=== PATIENT | male | born 1955 | race Caucasian/White ===

== ENCOUNTER 2024-01-26 22:21 | Emergency (ER) | payer BC, SELFPAY ==
[2024-01-26 22:30] VITALS: BP 136/84
--- NOTE | 2024-01-27 00:57 | ED.GENMED ---
History of Present Illness
General
Chief Complaint: Back Pain
Time Seen by Provider: 01/27/24 00:54
Travel History
Have you had any contact with someone who has COVID-19?: No
Do you have any symptoms of coronavirus? Fever > 100 degrees, chills, cough, shortness of breath, sore throat, loss of taste or smell, muscle aches, or headache?: No
History of Present Illness
History of Present Illness:
68-year-old male with history of hypertension and chronic neck pain presents to the emergency department for evaluation of sudden onset low back pain radiating down both legs, states he was woodworking and attempted to bend forward to pick something
up when he felt sudden onset of severe pain. The pain radiates down both legs. Denies any loss of bladder or bowel function. He is able to ambulate. He is on high-dose opioids daily due to chronic neck issues
Past History
Past History
ED Past Medical History: HTN, Other (Chronic back pain, remote history of kidney stone) and Other (migraines)
ED Past Surgical History: Other (Hernia repair)
Patient has exhibited threatening behavior?: No
PSI?: No
Social History
Tobacco: Non-smoker
Alcohol: Chronic alcoholic
Personal:
Living: with family
Family History
Family History: Negative Diabetes, Hypertension, Early CAD, Asthma or Cancer
Review of Systems
Review of Systems
Allergies reviewed?: Yes
All Other Systems: ROS reviewed and negative except as documented in HPI and ROS
Phy Exam
Physical Exam
Physical Exam:
GEN: Well appearing, NAD, WDWN
HEENT: Oral mucosa moist, no scleral icterus
Cardiac: Regular rate
Lung: No respiratory distress, no tachypnea
MSK: No gross deformity or injuries. No reproducible lumbar spine tenderness. Limited lumbar spine range of motion secondary to pain. Bilateral lower extremity strength and sensation is 5 out of 5 in all verdugo and symmetric. Patellar reflexes
2+ bilaterally
Skin: Good color, no pallor or jaundice, no rashes
Neuro: AO x3, moves all extremities freely
Psych: Calm, cooperative
Course
Orders/Labs/Results
Orders:
Orders
01/27/24 01:09
Acetaminophen [Tylenol] 1,000 mg PO NOW STA
Gabapentin [Neurontin] 300 mg PO NOW STA
Ketorolac [Toradol] 30 mg IM NOW STA
Lidocaine [Lidocaine 4% Patch] 1 patch TOPICAL NOW STA
Oxycodone [Roxicodone] 30 mg PO NOW STA
01/27/24 01:10
Oxycodone [Roxicodone] 10 mg PO NOW STA
01/27/24 02:25
Prednisone [Deltasone] 40 mg PO NOW STA
Vital Signs
Initial and Last Documented VS:
Initial Vital Signs
Temp Pulse Resp BP Pulse Ox
97.8 F 64 24 136/84 96
01/26/24 22:30 01/26/24 22:30 01/26/24 22:30 01/26/24 22:30 01/26/24 22:30
Last Documented Vital Signs
Temp Pulse Resp BP Pulse Ox
97.8 F 64 24 136/84 96
01/26/24 22:30 01/26/24 22:30 01/26/24 22:30 01/26/24 22:30 01/26/24 22:30
MDM/Problems Addressed
MDM/Problems Addressed:
Likely acute disc herniation. The patient has no red flag symptoms warranting urgent imaging, no clinical findings concerning for cauda equina. Pain modestly improved with measures in the emergency department. Ultimately due to his chronic opioid
use his pain will be difficult to control, will prescribe additional oxycodone on top of his chronic dose as well as gabapentin and a steroid taper. Recommend outpatient primary care and spine surgery follow-up
*Critical Care Note
Total Time (30-74mins, 75-104mins- exclusive of procedures): Not Applicable
ED Attending Note
-
Portions of this chart may have been created with voice recognition software.� Occasional wrong word or��sound alike� substitutions may have occurred due to the inherent limitations of voice recognition software.
Discharge Plan
Departure
Patient Disposition: Home (Routine Discharge)
Date of Disposition: 01/27/24
Time of Disposition: :
Patient with high blood pressure during this ER visit?: No
Discharge Problem:
Bilateral lumbar radiculopathy
Instructions: Radiculopathy (DC)
Prescriptions:
New
prednisone 20 mg tablet
40 mg PO DAILY Qty: 18 0RF
Rx Instructions:
40mg x 3 days, then 20mg x 3 days
oxycodone 10 mg tablet
10 mg PO Q6H PRN (Reason: Pain) Qty: 10 0RF
gabapentin 300 mg capsule
300 mg PO TID Qty: 30 0RF
No Action
calcium carbonate [Calcium 500] 500 MG tablet
500 mg PO DAILY
ibuprofen [Advil] 200 MG tablet
800 mg PO TID
omega-3 fatty acids-fish oil 1 EACH capsule
1 ea PO DAILY
oxycodone 10 MG tablet extended release 12 hr
30 mg PO BID
nzcyauw-fqctgmlmxq-HBS-caff [Fiorinal-Codeine #3] 1 CAP capsule
2 cap PO PRN PRN (Reason: headaches)
morphine 30 MG capsule,extend.release pellets
30 mg PO Q12H
multivitamin [Daily Vitamin] 1 EACH tablet
1 ea PO DAILY
rabies vacc,human diploid (PF) [Imovax Rabies Vaccine (PF)] 1 ML recon soln
1 ml IM . DIRECTED Qty: 3 0RF
Rx Instructions:
See Rabies Vaccine Post Exposure Prophylaxis Instruction Sheet for Dosing Instructions
lisinopril 5 MG tablet
5 mg PO DAILY
oxycodone-acetaminophen 5 MG/325 MG tablet
1 tab PO Q6HPRN PRN (Reason: Pain) Qty: 16 0RF
Referrals:
Eleazar Bravo MD [Active] -
Manan Gamino PA-C [Family Provider] -
Interventions
Interventions:
*Risk Screen - Suicide Last Done: 01/26/24 22:30
*General Assessment Last Done: 01/27/24 01:00
*Neglect/Abuse Screening Last Done: 01/26/24 22:30
ED- Fall Risk Assessment Last Done: 01/27/24 01:00
*ED COVID-19 Vaccine History Last Done: 01/27/24 01:00
ED-Musculoskeletal Assessment Last Done: 01/27/24 01:00
[2024-01-27] MEDS: TYLENOL 1000 MG PO (01:21)
[2024-01-27] MEDS: NEURONTIN 300 MG PO (01:22)
[2024-01-27] MEDS: ROXICODONE 30 MG PO (01:22)
[2024-01-27] MEDS: ROXICODONE 10 MG PO (01:23)
[2024-01-27] MEDS: TORADOL 30 MG IM (01:24)
[2024-01-27] MEDS: LIDOCAINE 4% PATCH 1 PATCH TOPICAL (01:28)
[2024-01-27] MEDS: DELTASONE 40 MG PO (02:48)
[2024-01-27 02:50] VITALS: BP 101/65
== END 2024-01-27 03:00 | disposition home or self-care (01) ==
LOC: EMR 22:21
PROVIDERS: EMERGENCY PHYSICIAN Student in an Organized Health Care Education/Training Program; FAMILY PHYSICIAN Physician Assistant Medical
DX: M54.16 Radiculopathy, lumbar region (principal); I10 Essential (primary) hypertension; F10.20 Alcohol dependence, uncomplicated; Z79.891 Long term (current) use of opiate analgesic; Z87.442 Personal history of urinary calculi
CPT/HCPCS: 99282; 96372

== ENCOUNTER 2024-02-09 14:57 | Emergency (ER) | payer BC, SELFPAY ==
[2024-02-09 15:04] VITALS: BP 168/87
[2024-02-09 15:32] LABS: % Basophils 0.3 % (0-2); % Eosinophils 1.3 % (0-6); % Immature Granulocytes 0.1 % (0-0.5); % Lymphocytes 36.1 % (20.5-51.1); % Monocytes 7.4 % (1.7-9.3); % Neutrophils 54.8 % (42.2-75.2); Absolute Eosinophils 0.1 10^3/uL (0-0.7); Absolute Lymphocytes 2.5 10^3/uL (1.2-3.4); Absolute Monocytes 0.5 10^3/uL (0.1-0.6); Absolute Neutrophils 3.9 10^3/uL (1.4-6.5); Hematocrit 39.1 % (39.0-52.0); Hemoglobin 13.4 g/dL (13.0-18.0); Mean Corp Hgb Conc. 34.3 g/dL (33.0-37.0); Mean Corpuscular Hgb 28.9 pg (27.0-31.0); Mean Corpuscular Volume 84.4 fL (80.0-94.0); Mean Platelet Volume 9.7 fL (7.4-10.4); Nucleated Red Blood Cells % 0 % (-); Platelet Count 199 10^3/uL (130-400); Red Blood Cell Count 4.63 10^6/uL (4.70-6.10)
[2024-02-09 15:50] LABS: ALT (SGPT) 34 U/L (0-50); AST (SGOT) 29 U/L (17-59); Albumin 4.4 g/dl (3.5-5.0); Alkaline Phosphatase 58 U/L (38-126); Blood Urea Nitrogen 20 mg/dl (9-20); Calcium 10.7 mg/dl (8.4-10.2); Carbon Dioxide 25 mmol/L (22-30); Chloride 109 mmol/L (98-107); Glucose 104 mg/dl (70-99); Lipase 52 U/L (23-300); Potassium 4.1 mmol/L (3.5-5.1); Sodium 137 mmol/L (135-145); Total Bilirubin 0.2 mg/dl (0.2-1.3); eGFR > 60.00
[2024-02-09] MEDS: OMNIPAQUE 50 ML PO (17:23)
[2024-02-09 17:47] VITALS: BP 156/79
[2024-02-09 22:20] VITALS: BP 158/80
--- NOTE | 2024-02-09 22:20 | ED.GENMED ---
History of Present Illness
General
Chief Complaint: Abdominal Pain
Source: patient
Exam Limitations: none
Time Seen by Provider: 02/09/24 17:03
Nursing documentation reviewed up to this point in time: agreed with
Travel History
Have you had any contact with someone who has COVID-19?: No
Do you have any symptoms of coronavirus? Fever > 100 degrees, chills, cough, shortness of breath, sore throat, loss of taste or smell, muscle aches, or headache?: No
History of Present Illness
History of Present Illness:
68-year-old male with history as documented presents for abdominal pain. Patient reports that is been ongoing for the past 2 months. He has had associated diarrhea. He thinks it may be related to dietary changes. He saw his primary today was
found to have some tenderness in the lower abdomen and was sent for CT. No nausea or vomiting. No fevers or chills. No urinary symptoms. No other complaints.
Past History
Past History
ED Past Medical History: HTN, Other (Chronic back pain, remote history of kidney stone) and Other (migraines)
ED Past Surgical History: Other (Hernia repair)
Patient has exhibited threatening behavior?: No
PSI?: No
Social History
Tobacco: Non-smoker
Alcohol: Chronic alcoholic
Personal:
Living: with family
Family History
Family History: Negative Diabetes, Hypertension, Early CAD, Asthma or Cancer
Review of Systems
Review of Systems
All Other Systems: ROS reviewed and negative except as documented in HPI and ROS
Constitutional: Denies fever or chills
Respiratory: Denies trouble breathing
Cardiac: Denies chest pain
ABD/GI: Reports abdominal pain and diarrhea; Denies nausea or vomiting
: Denies dysuria, frequency or flank pain
Musculoskeletal: Reports back pain (Chronic and unchanged)
Neurological: Denies headache, weakness or numbness
Phy Exam
Physical Exam
Physical Exam:
General: Awake, alert, oriented x3; no acute distress
Head: Normocephalic, atraumatic
Eyes: Conjunctiva normal, sclera anicteric
Throat: Airway intact, handling secretions
Neck: Trachea midline
Lungs: Breathing comfortably no distress
Heart: Regular rate
Abd: Soft, non distended, minimally tender in the lower abdomen, no abdominal mass
Neuro: No gross deficits
Skin: no rash
Extremities: No edema in extremities, warm and well-perfused
Scores
Heart Failure Risk
Heart Failure Risk Score: Not Applicable
Heart Score for Chest Pain Patients
STEMI patient?: Not applicable
Withdrawal Assessment of Alcohol
Withdrawal Assessment Completed?: Not applicable
Course
Orders/Labs/Results
Orders:
Orders
02/09/24 15:13
Complete Blood Count/With Diff Urgent
Comprehensive Metabolic Panel Urgent
Lipase Urgent
02/09/24 17:15
STOOL [C difficile Antigen & Toxins] Urgent
[facility] Source: Feces/Stool
Specimen Description:
Stool Culture Urgent
[facility] Source: Feces/Stool
Specimen Description:
Iohexol [Omnipaque] See Protocol PO NOW STA
02/09/24 17:16
CT Abd/pel (oral only)-DH Only Urgent
Reason For Exam: abd pain, bloating, diarrhea
Abnormal Lab Results
02/09/24
15:13
RBC 4.63 L 10^6/uL
(4.70-6.10)
Chloride 109 H mmol/L
(98-107)
Creatinine 0.6 L mg/dL
(0.7-1.3)
Glucose 104 H mg/dl
(70-99)
Calcium 10.7 H mg/dl
(8.4-10.2)
02/09/24 15:13
02/09/24 15:13
Vital Signs
Initial and Last Documented VS:
Initial Vital Signs
Temp Pulse Resp BP Pulse Ox
36.8 C 60 20 168/87 95
02/09/24 15:04 02/09/24 15:04 02/09/24 15:04 02/09/24 15:04 02/09/24 15:04
Last Documented Vital Signs
Temp Pulse Resp BP Pulse Ox
36.8 C 60 19 156/79 99
02/09/24 15:04 02/09/24 19:30 02/09/24 19:30 02/09/24 17:47 02/09/24 18:45
MDM/Problems Addressed
Differential Diagnosis Includes:
Constipation with fecal impaction, diverticulitis, enteritis, colitis
MDM/Problems Addressed:
68-year-old male presents for evaluation of abdominal pain for the past 2 months associate with loose stools that he thinks could be related to recent dietary changes or he is increased his protein and fat intake and decreased his carbohydrates.
Hypertensive but otherwise normal vitals. Physical exam as above. Sent off labs including a CBC which was unremarkable, CMP which showed no clinically significant abnormalities. He was sent for a CT abdomen pelvis showed moderate stool burden no
other acute pathology. Plan to discharge patient home and follow-up with GI as an outpatient. He feels comfortable with this plan. Spoke about return precautions all questions answered.
*Radiology
Radiology exam reviewed: radiology read reviewed
*Pulse Oximetry
Patient hypoxic: no
*Critical Care Note
Total Time (30-74mins, 75-104mins- exclusive of procedures): Not Applicable
Data Reviewed
Source: patient and records
ED Attending Note
-
Portions of this chart may have been created with voice recognition software.� Occasional wrong word or��sound alike� substitutions may have occurred due to the inherent limitations of voice recognition software.
Discharge Plan
Departure
Patient Disposition: Home (Routine Discharge)
Date of Disposition: 02/09/24
Time of Disposition: 22:23
Patient with high blood pressure during this ER visit?: Yes
Discharge Problem:
Abdominal pain, Diarrhea
Instructions: Abdominal Pain
Prescriptions:
No Action
calcium carbonate [Calcium 500] 500 MG tablet
500 mg PO DAILY
ibuprofen [Advil] 200 MG tablet
800 mg PO TID
omega-3 fatty acids-fish oil 1 EACH capsule
1 ea PO DAILY
oxycodone 10 MG tablet extended release 12 hr
30 mg PO BID
ebydvit-moshismsqp-UFA-caff [Fiorinal-Codeine #3] 1 CAP capsule
2 cap PO PRN PRN (Reason: headaches)
morphine 30 MG capsule,extend.release pellets
30 mg PO Q12H
multivitamin [Daily Vitamin] 1 EACH tablet
1 ea PO DAILY
rabies vacc,human diploid (PF) [Imovax Rabies Vaccine (PF)] 1 ML recon soln
1 ml IM . DIRECTED Qty: 3 0RF
Rx Instructions:
See Rabies Vaccine Post Exposure Prophylaxis Instruction Sheet for Dosing Instructions
lisinopril 5 MG tablet
5 mg PO DAILY
oxycodone-acetaminophen 5 MG/325 MG tablet
1 tab PO Q6HPRN PRN (Reason: Pain) Qty: 16 0RF
prednisone 20 mg tablet
40 mg PO DAILY Qty: 18 0RF
Rx Instructions:
40mg x 3 days, then 20mg x 3 days
oxycodone 10 mg tablet
10 mg PO Q6H PRN (Reason: Pain) Qty: 10 0RF
gabapentin 300 mg capsule
300 mg PO TID Qty: 30 0RF
Referrals:
Manan Gamino PA-C [Family Provider] - Follow up in 5-7 days
Activity Restrictions/Additional Instructions:
Thank you for visiting the Emergency Department at [facility].
1. Please schedule a follow up appointment as directed. Call first thing tomorrow morning to make an appointment.
2. If indicated, please take your medications as instructed and indicated on discharge paperwork.
3. If any of your symptoms do not improve, or persist, or become more severe within 6-12 hours, please return to the emergency department for further care.
4. Please return to the emergency department if you develop a headache, neck pain/stiffness, fever greater than 100.4F, chest pain, shortness of breath, persistent nausea, vomiting, slurred speech, difficulty walking, numbness/tingling, weakness,
signs of infection or any other symptoms that are worrisome to you.
Please call [phone] if you have any questions.
Interventions
Interventions:
*Risk Screen - Suicide Last Done: 02/09/24 17:44
*General Assessment Last Done: 02/09/24 17:44
*Neglect/Abuse Screening Last Done: 02/09/24 17:44
ED- Fall Risk Assessment Last Done: 02/09/24 17:44
*ED COVID-19 Vaccine History Last Done: 02/09/24 15:04
[facility]-Pzcnde-Ctmixqgcdw Assessment Last Done: 02/09/24 17:44
Discharge Date and Time
Print Language: [id number]
== END 2024-02-09 22:38 | disposition home or self-care (01) ==
LOC: EMR 14:57
PROVIDERS: EMERGENCY PHYSICIAN Emergency Medicine; FAMILY PHYSICIAN Physician Assistant Medical
DX: R10.9 Unspecified abdominal pain (principal); R19.7 Diarrhea, unspecified; I10 Essential (primary) hypertension; G89.29 Other chronic pain; Z87.442 Personal history of urinary calculi
CPT/HCPCS: 99284; 74176; 80053; 83690; 85025